=== PATIENT | male | born 1940 | race Caucasian/White ===

== ENCOUNTER 2017-01-03 09:28 | Day surgery (SDC) | payer MEDICARE, OTHER ==
[2016-12-30 11:14] LABS: BASOPHILS 0.7 %; BASOPHILS ABSOLUTE 0.06 10/3/uL (0.0-0.16); EOSINOPHILS 4.9 %; EOSINOPHILS ABSOLUTE 0.42 10/3/uL (0.0-0.53); HEMATOCRIT 42.5 % (40.0-51.0); HEMOGLOBIN 14.2 g/dL (13.6-17.8); IMMATURE GRANULOCYTES 0.1 %; IMMATURE GRANULOCYTES ABSOLUTE 0.01 10/3/uL (0.0-0.11); LYMPHOCYTES 37.1 %; LYMPHOCYTES ABSOLUTE 3.15 10/3/uL (0.67-4.30); MEAN CORPUS HGB CONC 33.4 g/dL (32.0-36.0); MEAN CORPUSCULAR HEMOGLOB 28.7 pg (26.0-34.0); MEAN CORPUSCULAR VOLUME 85.9 fL (80-100); MEAN PLATELET VOLUME 12.5 fL (9.2-13.0); MONOCYTES 13.4 %; MONOCYTES ABSOLUTE 1.14 10/3/uL (0.21-1.20); NEUTROPHILS 43.8 %; NEUTROPHILS ABSOLUTE 3.72 10/3/uL (2.02-8.40); PLATELET COUNT 280 10/3/uL (150-400); RBC DISTRIBUTION WIDTH 16.1 % (12.0-16.0); RED CELL COUNT 4.95 10/6/uL (4.7-6.1); WHITE BLOOD CELLS 8.5 10/3/uL (4.5-10.5)
[2016-12-30 11:21] LABS: MANUAL DIFF NO %
[2016-12-30 11:34] LABS: A/G RATIO 0.9 (0.7-1.9); ALBUMIN 3.8 G/DL (3.5-5.0); ALKALINE PHOSPHATASE 86 U/L (45-117); BUN (BLOOD UREA NITROGEN) 18 MG/DL (6-23); CHLORIDE, SERUM 107 MMOL/L (96-112); CHOL/HDL RATIO(NOT ORDER) 3.6 (0-5); CHOLESTEROL 141 MG/DL (< 200); CO2 (CARBON DIOXIDE) 29 MMOL/L (24-34); CREATININE 1.22 MG/DL (0.70-1.30); GFR AFRICAN AMERICAN 66 ML/MIN (>=60); GFR NON AFRICAN AMERICAN 57 ML/MIN (>=60); GLOBULIN 4.1 G/DL (2.5-4.1); GLUCOSE, SERUM 74 MG/DL (60-99); HDL CHOLESTEROL 39 MG/DL (> 39); LDL CHOLESTEROL 60 MG/DL (< 130); NON-HDL CHOLESTEROL 102 MG/DL (< 160); POTASSIUM, SERUM 4.5 MMOL/L (3.5-5.3); SGOT(AST) 30 U/L (5-40); SGPT(ALT) 24 U/L (5-65); SODIUM, SERUM 141 MMOL/L (135-148); TOTAL BILIRUBIN 0.5 MG/DL (0-1.2); TOTAL PROTEIN 7.9 G/DL (6.0-8.5); TRIGLYCERIDE 214 MG/DL (< 150)
--- NOTE | ~2017-01-03 | OP ---
Record Of Operation [facility] [address] [place]. [address] NAME: CUCO AZUL : 38 STATUS : [place] [facility] PAT#: [id number] AGE: 76 ADM/REG DATE : 01/03/17 MR#: [id number] REPORT SERV DATE: 01/03/17 DICTATED BY: OMAR KERN JR. DATE: 01/03/17 REPORT STATUS : Draft TRANSCRIBED BY: MODL DATE: 01/03/17 DATE OF PROCEDURE: 01/03/2017 CLAMP CARRIER OPERATOR: Renetta Dean. PROCEDURE: Laparoscopic cholecystectomy. PREOPERATIVE DIAGNOSIS: Cholelithiasis. POSTOPERATIVE DIAGNOSIS: Cholelithiasis. ANESTHESIA: General. INDICATIONS: This patient had developed progressive right upper quadrant pain. Imaging showed cholelithiasis. Of note, he has had previous distal pancreatectomy for cystic neoplasm. Cholecystectomy is indicated for symptomatic cholelithiasis. FINDINGS: On laparoscopic examination of the abdomen, there were some adhesions in the left upper quadrant from previous surgery. There was evidence of his chronic inflammation of the gallbladder, which was removed successfully, it contained small stones. DESCRIPTION OF PROCEDURE: With adequate general anesthesia, the patient was placed in supine position. The abdomen was prepped and draped sterilely. 0.5% Marcaine was used for local infiltration of all trocar sites. An infraumbilical incision was made. The dissection was carried down sharply through the subcutaneous tissues. The fascia and peritoneum were opened. The peritoneal cavity was entered. A balloon tipped trocar was introduced and the abdomen was insufflated with CO2. The laparoscope was introduced with the above-noted findings. Under direct vision, a 10/11 trocar was placed in the epigastric region and then two 5 mm trocars in the subcostal region. The gallbladder was identified, grasped, and retracted in a cephalad manner. Adhesions taken off the gallbladder. Then, the cystic duct and artery were identified, doubly clipped and divided. The gallbladder was removed from its bed with electrocautery. It was extracted through the umbilical site and submitted to Pathology for examination. Bleeding was assured with electrocautery. The area was irrigated thoroughly with saline. There was no evidence of any bleeding or bile leak. Then, all trocars were removed under vision. The epigastric and umbilical sites were closed with dgfyry-hu-iccar 0 PDS sutures. All wounds were then closed with dermal Monocryl. Sterile dressings were applied. The patient left the operating room in satisfactory condition. ESTIMATED BLOOD LOSS: 10 mL. MARIA EUGENIA/GERARD Omar Kern Record Of Operation [address] [address] NAME: CUCO AZUL : 38 STATUS : [place] [facility] PAT#: [id number] AGE: 76 ADM/REG DATE : 01/03/17 MR#: [id number] REPORT SERV DATE: 01/03/17 DICTATED BY: OMAR KERN JR. DATE: 01/03/17 REPORT STATUS : Draft TRANSCRIBED BY: GERARD DATE: 01/03/17 Andrew Hines / [id number] CC: Andrew Santoro Jr., M.D.
[~2017-01-03 09:28] MED LIST: ASAB PO; HYDROCORTISONE CREAM TOP; LIPITOR10 PO; LOP25 PO; MULTIPLE VIT PO; PRILOSEC10 MG PO; PROSCAR5 PO; REFRES1 OPH; T PO; [UNRECOGNIZED DRUG - OTHER]
== END 2017-01-03 18:01 | disposition home or self-care (01) ==
LOC: SDC 09:28
PROVIDERS: Specialist
PROC: 0FT44ZZ Resection of Gallbladder, Percutaneous Endoscopic Approach (ICD-10-PCS; principal; 2017-01-03 10:45)
DX: K80.10 Calculus of gallbladder with chronic cholecystitis without obstruction (principal); I10 Essential (primary) hypertension; I25.2 Old myocardial infarction; E78.5 Hyperlipidemia, unspecified; E78.00 Pure hypercholesterolemia, unspecified; M19.90 Unspecified osteoarthritis, unspecified site; I25.10 Atherosclerotic heart disease of native coronary artery without angina pectoris; Z88.8 Allergy status to other drugs, medicaments and biological substances; Z91.041 Radiographic dye allergy status; Z79.82 Long term (current) use of aspirin; Z79.899 Other long term (current) drug therapy; Z90.49 Acquired absence of other specified parts of digestive tract; Z98.890 Other specified postprocedural states
CPT/HCPCS: 71020; 80053; 80061; 82150; 85025; 88304; 93005; J0690; J1170; J2405; J2710; J3010; Q9967